=== PATIENT | male | born 1995 | race Hispanic/Latino ===

== ENCOUNTER 2017-12-26 13:52 | Emergency (ER) | payer BC, OTHER ==
[~2017-12-26] VITALS: Ht 162.6 cm; Wt 53.1 kg
--- OUTSIDE RECORDS SUMMARY | 2017-12-26 13:54 | XMS REPORT | Clinical Summary ---
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 Disp. Refills Start End Date Status Date metroNIDAZOLE (FLAGYL) Take 2 tablets by mouth 4 tablet 0 02/16/20 02/17/20 500 MG tablet Q12 hours for 2 doses 17 17 Active Problems No known active problems Encounters Date Type Specialty Care Team Description 02/15/2017 Office Visit Family Medicine Munir Rodriguez MD STD exposure (Primary Dx); PRB (rectal bleeding); Abdominal pain, unspecified location 02/15/2017 Orders Only Family Medicine Munir Rodriguez MD after 12/25/2016 Family History Medical History Relation Name Comments Cancer Paternal Grandfather Liver cancer Paternal Grandfather Relation Name Status Comments Paternal Grandfather Social History Tobacco Use Types Packs/Day Years Used Date Current Some Day Smoker Smokeless Tobacco: Never Used Alcohol Use Drinks/Week oz/Week Comments Yes Sex Assigned at Date Recorded Not on file Last Filed Vital Signs Vital Sign Reading Time Taken Blood Pressure 109/68 02/15/2017 9:48 AM CDT Pulse 57 02/15/2017 9:48 AM CDT Temperature 36.5 C (97.7 F) 02/15/2017 9:48 AM CDT Respiratory Rate 20 02/15/2017 9:48 AM CDT Oxygen Saturation - - Inhaled Oxygen - - Concentration Weight 54.7 kg (120 lb 9.6 oz) 02/15/2017 9:48 AM CDT Height 162.6 cm (5' 4") 02/15/2017 9:48 AM CDT Body Mass Index 20.7 02/15/2017 9:48 AM CDT Plan of Treatment Health Maintenance Due Date Last Done Comments INFLUENZA VACCINE 05/23/2017 Results * CHLAMYDIA/N. GONORRHOEAE RNA, TMA (02/15/2017 10:39 AM) Component Value Ref Range Chlamydia trachomatis NOT DETECTED NOT DETECTED RNA, TMA Neisseria gonorrhoeae NOT DETECTED NOT DETECTED RNA, TMA (Always message) Comment: This test was performed using the APTIMA COMBO2 Assay ([employer] The analytical performance characteristics of this assay, when used to test [facility] specimens have been determined by [facility]. Specimen Performing Laboratory [facility] Narrative FASTING:YES * URINALYSIS, COMPLETE, WITH REFLEX TO CULTURE (02/15/2017 10:34 AM) Component Value Ref Range Color, UA YELLOW YELLOW Appearance CLEAR CLEAR Specific gravity, urine 1.028 1.001 - 1.035 pH, urine 6.5 5.0 - 8.0 Glucose, urine NEGATIVE NEGATIVE Bilirubin, UA NEGATIVE NEGATIVE Ketones, UA NEGATIVE NEGATIVE Occult blood, urine NEGATIVE NEGATIVE Protein, UA NEGATIVE NEGATIVE Nitrite, UA NEGATIVE NEGATIVE Leukocyte esterase, UA NEGATIVE NEGATIVE WBC, UA NONE SEEN < OR=5 /HPF RBC, UA NONE SEEN < OR=2 /HPF Squamous epithelial NONE SEEN < OR=5 /HPF cells, UA Bacteria, UA NONE SEEN NONE SEEN /HPF Hyaline casts, UA NONE SEEN NONE SEEN /LPF Reflex NO CULTURE INDICATED Specimen Performing Laboratory [facility] Narrative FASTING:YES * HSV 1 and 2 specific Ab IgG (02/15/2017 10:34 AM) Component Value Ref Range HSV 1 IgG 15.00 (H) index HSV 2 IgG <0.90 index Comment: Index Interpretation ----- <0.90 Negative 0.90-1.09 Equivocal >1.09 Positive This assay utilizes recombinant type-specific antigens to differentiate HSV-1 from HSV-2 infections. A positive result cannot distinguish between recent and past infection. If recent HSV infection is suspected but the results are negative or equivocal, the assay should be repeated in 4-6 weeks. The performance characteristics of the assay have not been established for pediatric populations, immunocompromised patients, or screening. Specimen Performing Laboratory [facility] Narrative FASTING:YES * HIV 1/2 ANTIGEN/ANTIBODY, FOURTH GENERATION W/RFL (02/15/2017 10:34 AM) Component Value Ref Range HIV AG/AB 4th gen NON-REACTIVE NON-REACTIVE Comment: HIV-1 antigen and HIV-1/HIV-2 antibodies were not detected. There is no laboratory evidence of HIV infection. PLEASE NOTE: This information has been disclosed to you from records whose confidentiality may be protected by state law. If your state requires such protection, then the state law prohibits you from making any further disclosure of the information without the specific written consent of the person to whom it pertains, or as otherwise permitted by law. A general authorization for the release of medical or other information is NOT sufficient for this purpose. For additional information please refer to http://education.[employer]/faq/IRQ251 (This link is being provided for informational/ educational purposes only.) The performance of this assay has not been clinically validated in patients less than 2 years old. Specimen Performing Laboratory [facility] Narrative FASTING:YES * HSV type 1/2 combined Ab, IgM (02/15/2017 10:34 AM) Component Value Ref Range HSV 1 IgM NEGATIVE HSV 2 IgM NEGATIVE Comment: REFERENCE RANGE: NEGATIVE The IFA procedure for measuring IgM antibodies to HSV 1 and HSV 2 detects both type-common and type- specific HSV antibodies. Thus, IgM reactivity to both HSV 1 and HSV 2 may represent crossreactive HSV antibodies rather than exposure to both HSV 1 and HSV 2. This test was developed and its analytical performance characteristics have been determined by [facility]. It has not been cleared or approved by FDA. This assay has been validated pursuant to the CLIA regulations and is used for clinical purposes. Specimen Performing Laboratory [facility] Narrative FASTING:YES * Hepatitis acute panel (02/15/2017 10:34 AM) Component Value Ref Range Hepatitis A IgM NON-REACTIVE NON-REACTIVE Hepatitis B surface Ag NON-REACTIVE NON-REACTIVE Hepatitis B core IgM NON-REACTIVE NON-REACTIVE Hepatitis C Ab NON-REACTIVE NON-REACTIVE Signal/cutoff 0.03 <1.00 Specimen Performing Laboratory [facility] Narrative FASTING:YES * RPR screen (02/15/2017 10:34 AM) Component Value Ref Range RPR (monitor) w/refl NON-REACTIVE NON-REACTIVE titer Specimen Performing Laboratory [facility] Narrative FASTING:YES * Hepatitis B surface antibody (02/15/2017 10:34 AM) Component Value Ref Range Hepatitis B surface Ab NON-REACTIVE NON-REACTIVE Specimen Performing Laboratory [facility] Narrative FASTING:YES * CBC with platelet and differential (02/15/2017 10:34 AM) Component Value Ref Range WBC 4.2 3.8 - 10.8 Thousand/uL RBC 4.59 4.20 - 5.80 Million/uL HGB 14.4 13.2 - 17.1 g/dL HCT 43.0 38.5 - 50.0 % MCV 93.7 80.0 - 100.0 fL MCH 31.4 27.0 - 33.0 pg MCHC 33.5 32.0 - 36.0 g/dL RDW 13.1 11.0 - 15.0 % Platelet count 214 140 - 400 Thousand/uL MPV 9.4 7.5 - 12.5 fL Neutrophils, absolute 1,966 1,500 - 7,800 cells/uL Lymphocytes, absolute 1,693 850 - 3,900 cells/uL Monocytes, absolute 416 200 - 950 cells/uL Eosinophils, absolute 97 15 - 500 cells/uL Basophils, absolute 29 0 - 200 cells/uL Neutrophils 46.8 % Lymphocytes 40.3 % Monocytes 9.9 % Eosinophils 2.3 % Basophils + RC 0.7 % Specimen Performing Laboratory [facility] Narrative FASTING:YES * Comprehensive metabolic panel (02/15/2017 10:34 AM) Component Value Ref Range Glucose 88 65 - 99 mg/dL Comment: Fasting reference interval BUN, whole blood 13 7 - 25 mg/dL Creatinine 0.90 0.60 - 1.35 mg/dL EGFR Non-Afr. Prydeinig 121 > OR=60 mL/min/1.73m2 EGFR 140 > OR=60 mL/min/1.73m2 BUN/creatinine ratio NOT APPLICABLE 6 - 22 (calc) Sodium 140 135 - 146 mmol/L Potassium 4.2 3.5 - 5.3 mmol/L Chloride 104 98 - 110 mmol/L CO2 30 20 - 31 mmol/L Calcium 9.6 8.6 - 10.3 mg/dL Protein 7.7 6.1 - 8.1 g/dL Albumin, S 5.0 3.6 - 5.1 g/dL Globulin, total 2.7 1.9 - 3.7 g/dL (calc) Albumin/globulin ratio 1.9 1.0 - 2.5 (calc) Total bilirubin 0.6 0.2 - 1.2 mg/dL Alkaline phosphatase 74 40 - 115 U/L AST 19 10 - 40 U/L ALT 24 9 - 46 U/L Specimen Performing Laboratory [facility] Narrative FASTING:YES after 12/25/2016 Insurance Payer Benefit Subscriber ID Type Phone Address Plan / Group BCBS BCBS xxxxxxxxxxxx PPO CHOICE PPO/BANDAR DIAS PPO
[2017-12-26] MEDS ORDERED: ROBAXIN-750750 MG PO (14:29)
[2017-12-26] MEDS ORDERED: IBUPROFEN400 MG PO (14:29)
[2017-12-26 14:56] VITALS: BP 122/70
== END 2017-12-26 14:50 | disposition home or self-care (01) ==
LOC: FSED 13:52
DX: M54.2 Cervicalgia (principal); S16.1XXA Strain of muscle, fascia and tendon at neck level, initial encounter; V43.52XA Car driver injured in collision with other type car in traffic accident, initial encounter; Y92.488 Other paved roadways as the place of occurrence of the external cause
CPT/HCPCS: 99282

== ENCOUNTER 2019-05-04 08:12 | Emergency (ER) | payer BC ==
[~2019-05-04] VITALS: Ht 162.6 cm; Wt 53.1 kg
[~2019-05-04 08:12] MED LIST: IBUPROFEN400 MG PO; ROBAXIN-750750 MG PO
--- OUTSIDE RECORDS SUMMARY | 2019-05-04 08:13 | XMS REPORT | Clinical Summary ---
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 Phone Munir Rodriguez MD PCP Allergies No Known Allergies Medications No known medications Active Problems No known active problems Family History Medical History Relation Name Comments Cancer Paternal Grandfather Liver cancer Paternal Grandfather Relation Name Status Comments Paternal Grandfather Social History Date Tobacco Use Types Packs/Day Years Used Current Some Day Smoker Smokeless Tobacco: Never Used Alcohol Use Drinks/Week oz/Week Comments Yes Sex Assigned at Date Recorded Not on file Industry Job Start Date Occupation Not on file Not on file Not on file Travel End Travel History Travel Start No recent travel history available. Last Filed Vital Signs Not on file Plan of Treatment Health Maintenance Due Date Last Done Comments INFLUENZA VACCINE 05/23/2019 Results Not on fileafter 05/03/2018 Insurance Type Payer Benefit Subscriber ID Effective Phone Address Plan / Dates Group PPO BCBS BCBS xxxxxxxxxxxx [id number] CHOICE resent PPO/F[employer] PPO Advance Directives Patient has advance care planning documents on file. For more information, pledagoberto e contact: Josue Manjarrez [address] [place] [address]
--- NOTE | 2019-05-04 08:57 | Diagnostic Imaging Report ---
Frontal and lateral views of the chest. HISTORY: COMPARISON: None available. DISCUSSION: Lungs: The lungs are well inflated. No evidence of a consolidative pneumonia or pulmonary alveolar edema. Pleura: No pleural effusion or pneumothorax. Heart and mediastinum: The cardiomediastinal silhouette appears unremarkable. Bones and soft tissues: Appear unremarkable. IMPRESSION: No acute radiographic abnormality. Signed by: Dr. Cj Pérez D.O., M.M.M. on 05/04/2019 8:53 AM
== END 2019-05-04 09:19 | disposition home or self-care (01) ==
LOC: ER 08:12
DX: R07.89 Other chest pain (principal); X50.0XXA Overexertion from strenuous movement or load, initial encounter; Y99.0 Civilian activity done for income or pay
CPT/HCPCS: 71046; 93005; 99283

== ENCOUNTER 2021-05-27 17:33 | Emergency (ER) | payer SELFPAY ==
[~2021-05-27] VITALS: Ht 170.2 cm; Wt 70.3 kg
[2021-05-27] MEDS ORDERED: FLUORESCEIN SOD(OPTH) 1 MG STRP ONE (17:53)
[2021-05-27] MEDS ORDERED: SODIUM CHLORIDE 0.9% 1000ML 1,000 ML ONE (17:54)
[2021-05-27] MEDS ORDERED: IBUPROFEN IB200 MG PO (18:11)
[2021-05-27] MEDS ORDERED: ERYTHROMYCIN (OPTH) 3.5 GM OINT OP ONE (18:45)
[2021-05-27] MEDS ORDERED: TETRACAINE HCL 0.5% OPTH SOLN 4 ML BTL ONE (18:45)
== END 2021-05-27 18:44 | disposition home or self-care (01) ==
LOC: FSED 17:58
DX: H57.11 Ocular pain, right eye (principal); S05.01XA Injury of conjunctiva and corneal abrasion without foreign body, right eye, initial encounter; T65.91XA Toxic effect of unspecified substance, accidental (unintentional), initial encounter
CPT/HCPCS: 99284; J7030